=== PATIENT | male | born 1975 | race Caucasian/White ===

== ENCOUNTER 2023-05-03 05:17 | Emergency (ER) | payer BC ==
[2023-05-03 05:28] VITALS: BP 174/96; PULSE 86; RESP 18; TEMP 98.2; BMI 29.2
[2023-05-03] MEDS ORDERED: predniSONE 20 MG TABLET (UD) PO ONE (05:46)
[2023-05-03] MEDS ORDERED: FAMOTIDINE 20 MG TABLET PO ONE (05:46)
[2023-05-03] MEDS ORDERED: diphenhydrAMINE HCL 50 MG CAPSULE PO ONE (05:46)
[2023-05-03] MEDS ORDERED: diphenhydrAMINE HCL 25 MG CAPSULE (FP) PO ONE (05:48)
[2023-05-03] MEDS ORDERED: VALSARTAN 40 MG TABLET PO ONE (06:43)
[2023-05-03] MEDS ORDERED: VALSARTAN 80 MG TABLET ONE (06:45)
[2023-05-03] MEDS ORDERED: VALSARTAN 80 MG TABLET PO ONE (06:46)
== END 2023-05-03 06:51 | disposition home or self-care (01) ==
LOC: JER 05:17
DX: R21 Rash and other nonspecific skin eruption (principal); L23.4 Allergic contact dermatitis due to dyes
CPT/HCPCS: 99283-25

== ENCOUNTER 2023-05-03 12:08 | Emergency (ER) | payer BC ==
[2023-05-03 12:14] VITALS: BMI 29.2
[2023-05-03] MEDS ORDERED: ACETAMINOPHEN 1000 MG/100 ML BAG IVPB ONE (12:38)
[2023-05-03] MEDS ORDERED: ACETAMINOPHEN INJECTION 100 ML IVPB ONE (12:46)
[2023-05-03 12:49] LABS: BASO % 0.1 % (0-2.0); EOS % 0.1 % (0-4.5); HEMATOCRIT 50.8 % (35.4-49); HEMOGLOBIN 17.8 GM/dL (11.7-16.9); LYMPH % 4.9 % (8-40); MCH 29.8 pg (25.7-33.7); MCHC 35.1 g/dl (32.0-35.9); MEAN PLT VOLUME 7.3 fl (7.5-11.1); NEUT % 93.9 % (42.8-82.8); PLATELET COUNT 276 10^3/uL (134-434); RBC 5.98 M/mm3 (4.00-5.60); RDW 13.4 % (11.9-15.9); WHITE BLOOD COUNT 13.5 K/mm3 (4.0-10.0)
[2023-05-03 13:11] LABS: POTASSIUM 4.2 mmol/L (3.5-5.1)
[2023-05-03 13:13] LABS: CALCIUM 9.6 mg/dL (8.5-10.1)
[2023-05-03 13:14] LABS: ALBUMIN 4.6 g/dl (3.4-5.0); BLOOD UREA NITROGEN 10.4 mg/dL (7-18)
[2023-05-03 13:19] LABS: BILIRUBIN,TOTAL 1.3 mg/dL (0.2-1); TOT PROT 8.2 g/dl (6.4-8.2)
[2023-05-03 13:40] LABS: ANISOCYTOSIS 0; MACROCYTOSIS 0
[2023-05-03 15:21] VITALS: BP 177/112; PULSE 98; RESP 16; TEMP 97.6
== END 2023-05-03 15:30 | disposition home or self-care (01) ==
LOC: JER 12:08
PROC: 3E033NZ Introduction of Analgesics, Hypnotics, Sedatives into Peripheral Vein, Percutaneous Approach (ICD-10-PCS; principal; 2023-05-03)
DX: R22.0 Localized swelling, mass and lump, head (principal); R51.9 Headache, unspecified; R00.0 Tachycardia, unspecified; I10 Essential (primary) hypertension
CPT/HCPCS: 36415; 70450-TC; 70496-TC; 70498-TC; 71046-TC-FY; 80053; 84484; 85025; 93005; 93010; 99285-25